=== PATIENT | male | born 1990 | race Hispanic/Latino ===

== ENCOUNTER 2020-07-26 21:55 | Emergency (ER) | payer MEDICAID, SELFPAY | END 2020-07-27 00:40 | disposition home or self-care (01) | LOC: ERS 21:55 | DX: R07.81 Pleurodynia (principal); M25.531 Pain in right wrist; M79.652 Pain in left thigh; M79.651 Pain in right thigh; F41.9 Anxiety disorder, unspecified; F17.210 Nicotine dependence, cigarettes, uncomplicated; Z79.899 Other long term (current) drug therapy; Y04.2XXA Assault by strike against or bumped into by another person, initial encounter | CPT/HCPCS: 99281 ==

== ENCOUNTER 2022-08-30 00:42 | Emergency (ER) | payer MEDICAID, OTHER | END 2022-08-30 01:09 | LOC: ERS 00:42 | DX: Z02.89 Encounter for other administrative examinations (principal); Z87.891 Personal history of nicotine dependence | CPT/HCPCS: 99283 ==